=== PATIENT | male | born 1965 | race Hispanic/Latino ===

== ENCOUNTER 2018-12-21 14:01 | Outpatient (CLI) | payer BC ==
--- NOTE | 2018-12-21 16:22 | RAD ---
LEFT FOOT THREE VIEWS: 12/21/18 HISTORY: Left foot cellulitis excluding toes. Erythema, tenderness, swelling, and pain, particularly over the second cuneiform. There is diffuse soft tissue swelling of the lower leg and ankle. Degenerative changes including the first metatarsophalangeal joint as well as prominent calcaneal Achilles enthesophyte and focal thicke ambrose of the distal Achilles tendon as well as a small plantar calcaneal enthesophyte. IMPRESSION: Degenerative and osteoarthrosis changes. No fracture or dislocation. Diffuse soft tissue swelling. POS: [facility]
== END 2018-12-21 14:02 | disposition home or self-care (01) ==
LOC: BICRAD 14:01
DX: L03.116 Cellulitis of left lower limb (principal); M19.072 Primary osteoarthritis, left ankle and foot; M79.89 Other specified soft tissue disorders

== ENCOUNTER 2023-12-11 13:32 | Outpatient (CLI) | payer OTHER | END 2023-12-11 13:33 | disposition home or self-care (01) | LOC: ULT 13:32 | PROVIDERS: ATTEND Family Medicine | DX: M76.60 Achilles tendinitis, unspecified leg (principal) | CPT/HCPCS: 76999 ==